=== PATIENT | female | born 2000 | race Caucasian/White ===

== ENCOUNTER 2021-02-23 13:57 | Emergency (ER) | payer OTHER ==
[~2021-02-23] VITALS: Ht 165.1 cm; Wt 71.8 kg
[2021-02-23 14:10] VITALS: BP 115/66
[2021-02-23 15:15] LABS: BASOPHILS % (AUTO) 0.2 % (0.0-2.0); EOSINOPHILS % (AUTO) 0.2 % (0.0-4.0); HEMATOCRIT 38.1 % (36-48); HEMOGLOBIN 13.1 g/dL (12.0-16.0); LYMPHOCYTES # (AUTO) 0.5 K/uL (2.5-16.5); LYMPHOCYTES % (AUTO) 7.2 % (20.5-51.1); MEAN CORPUSCULAR HEMOGLOBIN 30 pg (27-31); MEAN CORPUSCULAR HGB CONC 35 g/dL (33-37); MEAN CORPUSCULAR VOLUME 88.1 fL (80-94); MONOCYTES # (AUTO) 0.7 K/uL (0.8-1.0); NEUTROPHILS # (AUTO) 6.1 K/uL (1.8-7.7); NEUTROPHILS % (AUTO) 82.4 % (42.2-75.2); PLATELET COUNT (AUTO) 265 K/uL (140-450); RED BLOOD CELL COUNT(AUTO) 4.32 MIL/uL (4.20-5.40); RED CELL DISTRIBUTION WIDTH 12.9 % (11.6-13.7); WHITE BLOOD COUNT (AUTO) 7.4 K/uL (4.5-11.0)
[2021-02-23] MEDS: KETOROLAC 30 MG/ML VIAL IM ONE (15:25)
[2021-02-23 15:30] LABS: ANION GAP 13.3 (8-16); CARBON DIOXIDE 27.4 mmol/L (21-32); CREATININE 0.7 mg/dL (0.6-1.3); POTASSIUM 3.7 mmol/L (3.5-5.1); TOTAL BILIRUBIN 2.1 mg/dL (0.0-1.0)
[2021-02-23] MEDS ORDERED: ACET-10509 PO (16:13)
[2021-02-23] MEDS ORDERED: ONDA-188 PO (16:13)
[2021-02-23 16:20] VITALS: BP 107/70
== END 2021-02-23 16:20 | disposition home or self-care (01) ==
LOC: MED 13:57
DX: K80.80 Other cholelithiasis without obstruction (principal)
CPT/HCPCS: 36415; 76705; 80053; 81002; 81025; 83690; 85025; 96372; 99284; J1885; Q0092

== ENCOUNTER 2021-04-05 07:07 | Day surgery (SDC) | payer OTHER, SELFPAY ==
[~2021-04-05] VITALS: Ht 165.1 cm; Wt 73.5 kg
[~2021-04-05 07:07] MED LIST: ACET-10509 PO; ONDA-188 PO
[2021-04-05] MEDS ORDERED: BUPIVACAINE-MPF/EPI 0.25% 30 ML VIAL INJ ONE (07:33)
[2021-04-05] MEDS ORDERED: LIDOCAINE 1% 500 MG/50 ML VIAL ONE (07:33)
[2021-04-05] MEDS ORDERED: DESFLURANE 240 ML BTL INH ONE (07:54)
[2021-04-05] MEDS ORDERED: PROPOFOL 200 MG/20 ML VIAL IV ONE (08:03)
[2021-04-05] MEDS ORDERED: ROCURONIUM 50 MG/5 ML VIAL IV ONE (08:04)
[2021-04-05] MEDS ORDERED: SUCCINYLCHOLINE CHLORIDE 200 MG/10 ML VIAL IVP ONE (08:04)
[2021-04-05] MEDS ORDERED: ONDANSETRON 4 MG/2 ML VIAL ONE (08:05)
[2021-04-05] MEDS ORDERED: KETOROLAC 30 MG/ML VIAL ONE (08:05)
[2021-04-05] MEDS ORDERED: DEXAMETHASONE 4 MG/ML VIAL ONE (08:05)
[2021-04-05] MEDS ORDERED: fentaNYL citrate 0.05 MG/ML VIAL ONE (08:06)
[2021-04-05] MEDS ORDERED: HYDROmorphone PFS 2 MG/ML SYR ONE ×2 (08:33→10:04)
[2021-04-05] MEDS ORDERED: SUGAMMADEX SODIUM 200 MG/2 ML VIAL IV ONE (09:00)
[2021-04-05] MEDS ORDERED: ONDANSETRON 4 MG/2 ML VIAL IVP PRN (09:25)
[2021-04-05] MEDS: HYDROmorphone 1 MG/ML AMP IVP PRN ×4 (10:00→10:30)
[2021-04-05] MEDS ORDERED: ACET-8386 PO (12:31)
== END 2021-04-05 12:45 | disposition home or self-care (01) ==
LOC: MOR 07:07 → MMU 07:08 → MOR 12:45
PROVIDERS: ATTEND Surgery
DX: K80.10 Calculus of gallbladder with chronic cholecystitis without obstruction (principal); Z79.899 Other long term (current) drug therapy
CPT/HCPCS: 36415; 47562; 71045; 82374; 86886; 86900; 86901; 87426; C1887; J0330; J0690; J1100; J1170; J1885; J2001; J2405; J2704; J3010; J3490; J7030; J7060; 88304

== ENCOUNTER 2023-10-08 15:06 | Emergency (ER) | payer SELFPAY ==
[~2023-10-08] VITALS: Ht 167.6 cm; Wt 93.0 kg
[~2023-10-08 15:06] MED LIST changes: +ACET-8905 PO
[2023-10-08 15:17] VITALS: BP 135/88; PULSE 100; RESP 18; TEMP 97.2; O2SAT 98
[2023-10-08] MEDS: NACL 0.9% 1,000 ML IV ONE (16:26)
[2023-10-08] MEDS ORDERED: ONDANSETRON 4 MG/2 ML VIAL ONE (16:29)
[2023-10-08] MEDS: ONDANSETRON 4 MG/2 ML VIAL IVP ONE (16:31)
[2023-10-08 17:07] LABS: BASOPHILS % (AUTO) 0.2 % (0.0-2.0); EOSINOPHILS % (AUTO) 0.1 % (0.0-4.0); HEMATOCRIT 39.3 % (36-48); HEMOGLOBIN 13.2 g/dL (12.0-16.0); LYMPHOCYTES # (AUTO) 1.5 K/uL (2.5-16.5); LYMPHOCYTES % (AUTO) 14.9 % (20.5-51.1); MEAN CORPUSCULAR HEMOGLOBIN 29 pg (27-31); MEAN CORPUSCULAR HGB CONC 34 g/dL (33-37); MEAN CORPUSCULAR VOLUME 86.7 fL (80-94); MONOCYTES # (AUTO) 0.7 K/uL (0.8-1.0); MONOCYTES % (AUTO) 6.9 % (1.7-9.3); NEUTROPHILS # (AUTO) 8.1 K/uL (1.8-7.7); NEUTROPHILS % (AUTO) 77.9 % (42.2-75.2); PLATELET COUNT (AUTO) 313 K/uL (140-450); RED BLOOD CELL COUNT(AUTO) 4.53 MIL/uL (4.20-5.40); RED CELL DISTRIBUTION WIDTH 13.6 % (11.6-13.7); WHITE BLOOD COUNT (AUTO) 10.4 K/uL (4.8-10.8)
[2023-10-08 17:31] LABS: ALBUMIN 3.7 g/dL (3.4-5.0); BILIRUBIN,DIRECT 0.1 mg/dL (0.0-0.3); CALCIUM 9.6 mg/dL (8.5-10.1); CARBON DIOXIDE 26.5 mmol/L (21-32); CREATININE 0.8 mg/dL (0.6-1.3); POTASSIUM 3.5 mmol/L (3.5-5.1); TOTAL BILIRUBIN 0.4 mg/dL (0.0-1.0); TOTAL PROTEIN, SERUM 7.8 g/dL (6.4-8.2)
[2023-10-08] MEDS ORDERED: ONDA-188 SL (17:38)
[2023-10-08 17:56] VITALS: BP 119/73; PULSE 100; RESP 18; TEMP 36.22512; O2SAT 98
== END 2023-10-08 17:56 | disposition home or self-care (01) ==
LOC: MED 15:06
DX: R11.2 Nausea with vomiting, unspecified (principal); R51.9 Headache, unspecified; R03.0 Elevated blood-pressure reading, without diagnosis of hypertension; Z90.49 Acquired absence of other specified parts of digestive tract; Z79.1 Long term (current) use of non-steroidal anti-inflammatories (NSAID); Z79.899 Other long term (current) drug therapy
CPT/HCPCS: 36415; 80048; 80076; 81025; 83690; 84703; 85025; 96361; 96374; 99283; J2405; J7030